=== PATIENT | male | born 1985 | race Two or more races ===

== ENCOUNTER 2024-09-24 16:46 | Outpatient (REF) | payer OTHER, SELFPAY | END 2024-09-24 16:47 | disposition home or self-care (01) | LOC: CF 16:46 | DX: Z13.89 Encounter for screening for other disorder (principal) ==

== ENCOUNTER 2024-12-04 14:29 | Outpatient (AMB) | payer OTHER, SELFPAY ==
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
[2024-12-04 14:40] VITALS: BMI 28.0
== END 2024-12-04 15:03 | disposition home or self-care (01) ==
LOC: HO.HOS 14:30
PROVIDERS: Visit Provider Physical Medicine & Rehabilitation
DX: M53.3 Sacrococcygeal disorders, not elsewhere classified (principal)
CPT/HCPCS: 99203

== ENCOUNTER → 2024-12-04 14:29 | Outpatient (BNVA) | payer OTHER, SELFPAY | PROVIDERS: Visit Provider Physical Medicine & Rehabilitation | DX: M53.3 Sacrococcygeal disorders, not elsewhere classified (principal) | CPT/HCPCS: 99202 ==

== ENCOUNTER 2025-01-31 09:51 | Outpatient (AMB) | payer OTHER, SELFPAY ==
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
[2025-01-31 10:06] VITALS: BMI 27.1
== END 2025-01-31 11:18 | disposition home or self-care (01) ==
LOC: HO.HOS 09:57
PROVIDERS: Visit Provider Physical Medicine & Rehabilitation
DX: M53.3 Sacrococcygeal disorders, not elsewhere classified (principal); M51.360 Other intervertebral disc degeneration, lumbar region with discogenic back pain only; S39.012A Strain of muscle, fascia and tendon of lower back, initial encounter
CPT/HCPCS: 99214

== ENCOUNTER → 2025-01-31 09:51 | Outpatient (BNVA) | payer OTHER, SELFPAY | PROVIDERS: Visit Provider Physical Medicine & Rehabilitation | DX: M51.360 Other intervertebral disc degeneration, lumbar region with discogenic back pain only (principal); S39.012A Strain of muscle, fascia and tendon of lower back, initial encounter; M53.3 Sacrococcygeal disorders, not elsewhere classified | CPT/HCPCS: 99212 ==

== ENCOUNTER → 2025-03-19 19:37 | Outpatient (BNV) | payer OTHER, SELFPAY | PROVIDERS: Visit Provider Radiology Diagnostic Radiology | DX: M47.816 Spondylosis without myelopathy or radiculopathy, lumbar region (principal); M48.061 Spinal stenosis, lumbar region without neurogenic claudication | CPT/HCPCS: 72148 ==

== ENCOUNTER 2025-03-19 19:40 | Outpatient (REF) | payer OTHER, SELFPAY ==
--- NOTE | ~2025-03-19 | MR_ITS ---
EXAMINATION: MR LUMBAR SPINE WITHOUT CONTRAST CLINICAL INFORMATION: M 51.369. COMPARISON: None available. TECHNIQUE: MRI of the lumbar spine was obtained using routine sequences without contrast. FINDINGS: Last rib-bearing vertebra labeled T12. No bone marrow STIR signal abnormality. Bone marrow inhomogeneity. Focal intrinsic hyperintense T1 signal at S2. 1 mm retrolisthesis at L2-3 and L3-4. Conus medullaris ends at pedicle of L1 with normal signal. T11-12: No disc herniation. No neuroforamina stenosis. T12-L1: No disc herniation. No neuroforamina stenosis. L1-2: No disc herniation. No neuroforamina stenosis. L2-3: Broad-based disc bulging. Facet joint and ligamentum flavum hypertrophy. Decreased AP diameter of the thecal sac and neuroforamina. L3-4: Broad-based disc bulging. Facet joint and ligamentum flavum hypertrophy. Reduced AP diameter of the thecal sac and neuroforamina encroaching the neural elements. L4-5: Broad-based disc bulging. Facet joint and ligamentum flavum hypertrophy producing the AP diameter of the thecal sac and neuroforamina encroaching the neural elements. L5-S1: Broad-based disc bulging. Facet joint hypertrophy. Reduced AP diameter of the thecal sac and bilateral neuroforamina narrowing. No prevertebral compartment hematoma, mass or fluid collection. MR/MR lumbar spine wo con IMPRESSION: Multilevel lumbar spondylosis resulting in central spinal canal and bilateral neuroforamina stenosis encroaching the neural elements at L3-4, L4-5 and to a lesser extent L2-3. Bone marrow inhomogeneity suggesting calcium metabolic disorder versus less likely a lymphoproliferative disorder. Electronically signed by: Montez Licea MD 03/20/2025 07:27 AM EDT
== END 2025-03-19 19:41 | disposition home or self-care (01) ==
LOC: HO.MRI 19:40
PROVIDERS: Visit Provider Physical Medicine & Rehabilitation
DX: M51.369 Other intervertebral disc degeneration, lumbar region without mention of lumbar back pain or lower extremity pain (principal)
CPT/HCPCS: 72148

== ENCOUNTER 2025-04-11 11:42 | Outpatient (AMB) | payer OTHER, SELFPAY ==
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
[2025-04-11 12:06] VITALS: BMI 27.1
== END 2025-04-11 13:31 | disposition home or self-care (01) ==
LOC: HO.HOS 11:42
PROVIDERS: Visit Provider Physical Medicine & Rehabilitation
DX: M51.369 Other intervertebral disc degeneration, lumbar region without mention of lumbar back pain or lower extremity pain (principal)
CPT/HCPCS: 99213

== ENCOUNTER → 2025-04-11 11:42 | Outpatient (BNVA) | payer OTHER, SELFPAY | PROVIDERS: Visit Provider Physical Medicine & Rehabilitation | DX: Z71.2 Person consulting for explanation of examination or test findings (principal); M51.369 Other intervertebral disc degeneration, lumbar region without mention of lumbar back pain or lower extremity pain | CPT/HCPCS: 99212 ==